=== PATIENT | female | born 1995 | race Hispanic/Latino ===

== ENCOUNTER 2017-07-26 21:26 | Emergency (ER) | payer OTHER ==
[~2017-07-26] VITALS: Ht 160 cm; Wt 59.0 kg
[2017-07-26 21:36] VITALS: BP 107/71
[2017-07-27] MEDS ORDERED: PROAIR HFA8.5 GM INH (09:33)
[2017-07-27] MEDS ORDERED: TESSALON PERLE100 M1 PO (09:34)
== END 2017-07-27 02:02 | disposition admitted as inpatient to this hospital (09) ==
LOC: ERH 21:26
DX: J45.909 Unspecified asthma, uncomplicated (principal)

== ENCOUNTER 2017-12-16 10:47 | Emergency (ER) | payer OTHER ==
[~2017-12-16] VITALS: Ht 157.5 cm; Wt 57.2 kg
[~2017-12-16 10:47] MED LIST: PROAIR HFA8.5 GM INH; TESSALON PERLE100 M1 PO
--- NOTE | 2017-12-16 11:27 | ED GI/GU/ABDOMINAL COMPLAINT ---
History of Present Illness General Chief Complaint: General Adult Stated Complaint: 10 WEEKS PREG ABD PAIN BLEEDING Source: patient Exam Limitations: no limitations Vital Signs & Intake/Output Vital Signs & Intake/Output Vital Signs Date Time Temp Pulse Resp B/P B/P Pulse O2 O2 Flow FiO2 Mean Ox Delivery Rate 12/16 1231 97.0 80 18 109/53 100 Room Air 12/16 1141 99.0 84 18 103/58 96 Room Air 12/16 1051 99.2 100 18 112/72 97 Room Air Allergies Coded Allergies: No Known Allergies (07/26/17) Triage Note: PT STATES SHE IS 10 WEEKS AND BEGAN HAVING LOWER ABD CRAMPING AND BLEEDING. Triage Nurses Notes Reviewed? yes ? y Is pt currently ? No HPI: 21-year-old female former smoker(quit 3 months back) with no significant past medical history except delivery 3 years back came to ED with chief complaint of abdominal cramps and vaginal bleeding since last night. According to patient she was in her usual state of health since last night when she noticed having abdominal cramps and she woke up and noticed that her pet sheet is soaked with blood. She didn't notice any clots. Patient decided to come to ED for further evaluation. Patient denied chest pain, palpitation, nausea, vomiting, chills, fever, headache, trauma to abdomen, sick contact, blood in urine, cough, sputum and dysuria. According to patient she is seeing her BRICKLAYER APPRENTICE regularly. She saw her BRICKLAYER APPRENTICE on 11 of December and her ultrasound was normal. Patient reported that she is stressed out as she is worried about her daughter who is 3-year-old and she is living in [place] with her mother. She is also worried about her care that she doesn't have a father with her. Patient denied any illicit drug use. (Rui PLAZA,Hayden) Reconcile Medications Vit No.130/Iron/FA ( Tablet) 27 MG IRON-800 MCG TABLET 1 TAB PO DAILY (Reported) (Deya PLAZA,Ang Luis) Past History Travel History Traveled to [place] past 21 day No Medical History Neurological: NONE EENT: NONE Cardiovascular: NONE Respiratory: asthma Gastrointestinal: NONE Hepatic: NONE Renal: NONE Musculoskeletal: NONE Psychiatric: NONE Endocrine: NONE Blood Disorders: NONE Cancer(s): NONE STEAM TABLE WORKER/Reproductive: NONE Tetanus Vaccine: 08/18/17 Surgical History Surgical History: none Psychosocial History Who do you live with Sister What is your primary language Armenian Tobacco Use: Never used ETOH Use: denies use Illicit Drug Use: denies illicit drug use (Catracho Fabian MD) Medical History Any Pertinent Medical History? see below for history Family History Hx Contributory? No (Ang Falk MD) Review of Systems Review of Systems Constitutional: Denies: chills, fever, weakness. EENTM: Reports: no symptoms. Respiratory: Denies: cough, orthopnea, short of breath, sputum production. Cardiovascular: Denies: chest pain, orthopena, palpitations, syncope. GI: Reports: abdominal pain. Denies: constipation, diarrhea, bloody stool, vomiting. Genitourinary: Reports: no symptoms. Musculoskeletal: Reports: no symptoms. Neurological/Psychological: Reports: no symptoms. (Catracho Fabian MD) Review of Systems Immunologic/Allergic: Reports: no symptoms. (Ang Falk MD) Physical Exam Physical Exam General Appearance: well developed/nourished, no apparent distress, alert, awake Head: atraumatic, normal appearance Eyes: Bilateral: normal appearance, PERRL, EOMI. Ears, Nose, Throat, Mouth: hearing grossly normal Neck: normal inspection, supple Respiratory: normal breath sounds Cardiovascular: regular rate/rhythm Gastrointestinal: normal bowel sounds, soft, non-tender Extremities: normal range of motion Neurologic/Psych: no motor/sensory deficits, awake, alert, oriented x 3 (Catracho Fabian MD) Core Measures ACS in differential dx? No Sepsis Present: No Sepsis Focused Exam Completed? No (Ang Falk MD) Progress Differential Diagnosis: intrauterine , threatened AB, ectopic Plan of Care: Orders Procedure Date/time Status URINALYSIS 12/16 1113 Complete HUMAN BETA HCG TITRE 12/16 1113 Complete Laboratory Tests 12/16/17 1300: Urinalysis MANY H, Urine Color YEL, Urine Clarity HAZY H, Urine pH 7.0, Ur Specific [place] 1.015, Urine Protein NEG, Urine Ketones NEG, Urine Nitrite POS H, Urine Bilirubin NEG, Urine Urobilinogen 2.0 H, Ur Leukocyte Esterase TRACE H, Ur Microscopic SEDIMENT EXAMINED, Urine RBC 1-3, Urine WBC RARE, Ur Epithelial Cells MANY H, Urine Bacteria MANY H, Granular Casts RARE H, Urine Hemoglobin TRACE-INTACT, Urine Glucose NEG 12/16/17 1121: Beta HCG, Quant 23002.0 Initial ED EKG: none Comments: 21-year-old female former smoker(quit 3 months back) with no significant past medical history except delivery 3 years back came to ED with chief complaint of abdominal cramps and vaginal bleeding since last night. Considering patient's largest ultrasound was normal so it's less likely ectopic . Patient probably has threatened as she mentioned about stress. We will do viability ultrasound and will check beta-hCG titer. If her ultrasound remained normal we will send the patient home and she will follow her flower machine operator for further beta-hCG titer follow-up. (Rui PLAZA,Catracho) Diagnostic Imaging: Viewed by Me: Ultrasound. Discussed w/RAD: Ultrasound. Radiology Impression: PATIENT: YARELI DAVID PRESENT AGE: 21 PATIENT ACCOUNT NO: [id number] : 94 LOCATION: [facility] ORDERING PHYSICIAN: Catracho Fabian MD SERVICE DATE: 12/16/17 EXAM TYPE: US - US- VIABILITY EXAMINATION: US , VIABILITY CLINICAL INFORMATION: 21-year-old female with known , presented with abdominal cramps and vaginal bleeding. COMPARISON: Pelvic ultrasound done on 08/18/2017. TECHNIQUE: Both transabdominal as well as transvaginal approach was used. FINDINGS: Single live intrauterine is identified. The crown-rump length measures 4.2 cm. The heart rate measures 161 bpm. movements are noted. The yolk sac is visualized, appears morphologically normal, measures 0.5 cm. Based on sonographic criteria, the estimated gestational age is 11 weeks and 1 day with JEFFERSON on 07/06/2018. Incidental note is made of small subchorionic hemorrhage to the left of the sac. The cervix is closed. The right ovary measures 3.9 x 2.0 x 1.7 cm while the left measures 3.8 x 1.8 x 2.4 cm. There is no free fluid present. IMPRESSION: Single live intrauterine is present with estimated gestational age of 11 weeks, and 1 day with JEFFERSON on 07/06/2018. Note is made of small subchorionic hemorrhage. DICTATED BY: Celena Wiggins MD DATE/TIME DICTATED:12/16/17 / 1251 GROOVING MACHINE OPERATOR:SAMANTHA DATE/TIME TRANSCRIBED: / 1251 CONFIDENTIAL, DO NOT COPY WITHOUT APPROPRIATE AUTHORIZATION. < Electronically signed in Other Vendor System> SIGNED BY: Celena Wiggins MD 12/16/17 6755 (Deya PLAZA,Ang Luis) Departure Departure Disposition: HOME OR SELF CARE Condition: Stable Clinical Impression Primary Impression: Threatened Referrals: Patient Has No Primary Care Dr (PCP/Family) Additional Instructions: Please follow up primary care physician in one week. Please follow up with your BRICKLAYER APPRENTICE within 24 hours. Please try to be stress-free If you experience these kind of symptoms again please come back to ED. Departure Forms: Customer Survey General Discharge Information (Rui PLAZA,Catracho) PA/STRAPPING MACHINE TENDER Co-Sign Statement Statement: ED Attending supervision documentation- [X] I saw and evaluated the patient. I have also reviewed all the pertinent lab results and diagnostic results. I agree with the findings and the plan of care as documented in the PA's/STRAPPING MACHINE TENDER's documentation. X[X] I have reviewed the ED Record and agree with the PA's/STRAPPING MACHINE TENDER's documentation. [] Additions or exceptions (if any) to the PAs/STRAPPING MACHINE TENDER's note and plan are summarized below: [] (Deya PLAZA,Ang Luis)
[2017-12-16] MEDS ORDERED: PRENATAL TABLE1 EAC2 PO (12:15)
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
[2017-12-16 13:39] VITALS: BP 110/60
== END 2017-12-16 13:40 ==
LOC: ERH 10:47
DX: O20.0 Threatened abortion (principal)
CPT/HCPCS: 81001

== ENCOUNTER 2018-02-09 14:19 | Emergency (ER) | payer OTHER ==
[~2018-02-09] VITALS: Ht 157.5 cm; Wt 59.4 kg
[~2018-02-09 14:19] MED LIST changes: +PRENATAL TABLE1 EAC2 PO
[2018-02-09 14:27] VITALS: BP 102/67
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
== END 2018-02-09 16:52 | disposition admitted as inpatient to this hospital (09) ==
LOC: ERH 14:19
DX: Y04.0XXA Assault by unarmed brawl or fight, initial encounter (principal); Z33.1 Pregnant state, incidental
CPT/HCPCS: 99281